=== PATIENT | male | born 1975 | race Caucasian/White ===

== ENCOUNTER → 2020-10-02 09:55 | Outpatient (CLI) | payer BC, SELFPAY ==
[2020-10-02 12:16] LABS: Erythrocyte Sedimentation Rate 12 mm/hr (0-15)
[2020-10-02 12:17] LABS: Absolute Lymphocyte Count 1.22 X10^3/uL (0.83-4.51); Absolute Neutrophil Count 3.6 X10^3/uL (2.0-7.7); Basophil# 0.03 X10^3/uL; Basophil% 0.5 % (0-1); Eosinophil# 0.23 X10^3/uL; Hematocrit 51.8 % (40-54); Hemoglobin 17.1 g/dL (13.0-16.5); Lymphocyte # 1.22 X10^3/ul (4.0); Lymphocyte % 21.5 % (19-41); Mean Corpuscular Hgb 27.9 pg (27.0-32.0); Mean Corpuscular Volume 84.4 fL (80-94); Mean Platelet Vol. 10.4 fl (6.2-12.0); Monocyte% 10.6 % (0-10); NRBC Flagged by Analyzer 0 % (0-5); Neutrophil # 3.57 X10^3/uL (2.7-7.7); Neutrophil % 62.9 % (47-70); Platelet Count 241 K/mm3 (150-450); RBC Distribution Width CV 13.4 % (11.6-14.6); RBC Distribution Width SD 40.8 fl (35.1-43.9); Red Blood Count 6.14 M/mm3 (4.6-6.2); White Blood Count 5.7 K/mm3 (4.4-11.0)
[2020-10-02 12:34] LABS: Hemoglobin A1c 5.9 % (3.8-5.6)
[2020-10-02 12:51] LABS: Vitamin B12 609 pg/mL (211-911); Vitamin D,25 Hydroxy 25.4 ng/mL
[2020-10-02 13:07] LABS: ALB/GLOB Ratio 0.9 RATIO (0.9-2.4); AST(SGOT) 37 U/L (15-37); Alanine Aminotransfer ALT/SGPT 77 U/L (16-61); Albumin, Serum 3.7 g/dL (3.2-5.0); Alkaline Phosphatase 151 U/L (45-117); Anion Gap 6 (5-15); BUN 18 mg/dL (7-18); BUN/Creat Ratio 16.7 RATIO (10-20); CRP < 2.90 mg/L (0.0-3.0); Calcium,Total 8.6 mg/dL (8.5-10.1); Chloride 108 mmol/L (98-107); Creatinine, Serum 1.08 mg/dL (0.70-1.30); EST Glomerular Filtration Rate 78 mL/min (>60); Est Glom Filt Rate - Afr Amer 94 mL/min (>60); Globulin 3.9 g/dL (2.2-4.2); Glucose 126 mg/dL (74-106); Potassium 3.8 mmol/L (3.5-5.1); Protein, Total 7.6 g/dL (6.4-8.2); Rheumatoid Factor < 10.0 IU/mL (<15); Sodium Level 139 mmol/L (136-145); Thyroid Stim Hormone (TSH) 2.05 uIU/mL (0.358-3.74); Uric Acid 6.2 mg/dL (3.5-7.2)
[2020-10-06 12:55] LABS: ANTINUCLEAR ANTIBODIES DIRECT Negative (Negative)
[2020-10-08 08:22] LABS: VITAMIN B6 5.7 ug/L (5.3-46.7)
== END ==
PROVIDERS: PCP Internal Medicine; Referring Provider Podiatrist; Visit Provider Podiatrist
DX: G62.9 Polyneuropathy, unspecified (principal)
CPT/HCPCS: 36415; 80053; 82306; 82607; 82746; 83036; 84207; 84443; 84550; 85025; 85652; 86038; 86140; 86431

== ENCOUNTER → 2020-11-17 07:23 | Outpatient (CLI) | payer BC, SELFPAY ==
--- NOTE | 2020-11-17 09:24 | NEURO_ITS ---
NCS and/or EMG Patient Report Ordering Doctor: Kobe Sibley DATE OF SERVICE: 11/17/20 Indication: Numbness involving the 2-4 toes of both feet. Symptoms began in September 2020 and have gradually improved since that time. Localized chronic low back pain without radiation. No associated weakness. Evaluate for peripheral polyneuropathy. Findings: Nerve conduction studies were performed in the right and left lower extremities. The right peroneal motor study recording the extensor digitorum brevis showed a normal amplitude, normal distal latency and mildly slowed conduction velocity. No conduction block or focal slowing was present across the fibular neck. The right tibial motor study recording the abductor hallucis brevis showed a slightly reduced amplitude, normal distal latency and mildly slowed conduction velocity. Right sural sensory response showed a slightly reduced amplitude and mildly slowed conduction velocity. Right superficial peroneal sensory response showed a normal amplitude and mildly slowed conduction velocity. Right medial plantar sensory response showed absent response. Right lateral plantar sensory response showed an absent response. The left peroneal motor study recording the extensor digitorum brevis showed a normal amplitude, normal distal latency and mildly slowed conduction velocity. No conduction block or focal slowing was present across the fibular neck. The left tibial motor study recording the abductor hallucis brevis showed a borderline amplitude, normal distal latency and mildly slowed conduction velocity. Left sural sensory response showed a slightly reduced amplitude and mildly slowed conduction velocity. Left superficial peroneal sensory response showed a normal amplitude and conduction velocity. Left medial plantar sensory response showed a borderline amplitude and normal conduction velocity. Left lateral plantar sensory response showed an absent response. Needle EMG of the right lower extremity and paraspinal muscles was performed. No denervation was present in any muscle. Motor unit morphology, activation, and recruitment patterns were normal in all examined muscles (tibialis anterior, tibialis posterior, extensor hallucis longus, vastus medialis, medial gastrocnemius, lower lumbar paraspinals). Impression: This is a mildly abnormal, but indeterminant study. The diffusely slow conduction velocities and borderline sural and tibial responses are suggestive, but not diagnostic, of a mild underlying axonal, sensorimotor, peripheral zulema yneuropathy. The absent plantar responses are of unclear significance and likely technically limited given the preserved sensation within these territories. Finally, there was no electrophysiologic evidence of lumbar radiculopathy in the right lower extremity. Skip Villegas D.O.
== END ==
PROVIDERS: PCP Internal Medicine; Referring Provider Podiatrist; Visit Provider Podiatrist
DX: G62.9 Polyneuropathy, unspecified (principal)
CPT/HCPCS: 95886; 95912